=== PATIENT | female | born 1970 | race Caucasian/White ===

== ENCOUNTER 2017-09-29 02:03 | Emergency (ER) | payer OTHER ==
[~2017-09-29] VITALS: Ht 162.6 cm; Wt 96.3 kg
[~2017-09-29 02:03] MED LIST: CELEBREX200 MG PO; CIPROFLOXACIN500 M1 PO; FLUVOXAMINE MA100 MG PO; GEODON80 MG PO; GUANFACINE HCL E3 MG PO; IBUPROFEN800 MG; LAMICTAL200 MG PO; LEXAPRO10 MG PO; NAPROSYN500 MG PO; NOHOMEMEDS; PERCOCET 5/31 TABLET PO; PYRIDIUM100 MG PO; ROBAXIN500 MG PO; SYNTHROID112 MCG PO; TRAMADOL HCL50 MG PO; VYVANSE70 MG PO
[2017-09-29 02:24] LABS: ADD MIUA? YES; BILIRUBIN NEGATIVE; BLOOD LARGE; GLUCOSE (STRIP) NEGATIVE; KETONES NEGATIVE; LEUKOCYTES TRACE; NITRITE NEGATIVE; PROTEIN (STRIP) 100; SPECIFIC GRAVITY 1.004 (1.000-1.030); UROBILINOGEN 0.2 MG/DL (0.2-1.0)
[2017-09-29 02:26] LABS: COLOR RED ((YELLOW))
[2017-09-29 02:30] LABS: BACTERIA RARE /HPF; EPITHELIAL CELLS RARE /HPF; MUCUS NONE SEEN /LPF; RED BLOOD CELLS TNTC /HPF (0-5); UCUL ADDED? YES; WHITE BLOOD CELLS 20-30 /HPF (0-5)
[2017-09-29 02:50] LABS: HEMATOCRIT 35.3 % (36.0-46.0); MCH 30.4 PG (29.0-34.0); MCHC 35.7 G/DL (30.0-36.0); MEAN PLAT.VOLUME 8.6 uM^3 (9.5-12.4); PLATELET COUNT 313 K/uL (156-360); RBC DIS.WIDTH-CV 12.3 % (11.8-14.6); RBC DIS.WIDTH-SD 38.3 % (39-53); RED BLOOD COUNT 4.14 M/uL (3.80-5.20); WHITE BLOOD COUNT 7.2 K/uL (4.1-10.2)
[2017-09-29 02:53] LABS: MCV 85.3 FL (83-99)
[2017-09-29 03:07] LABS: CHLORIDE 105 mEq/L (99-109); POTASSIUM 3.4 mEq/L (3.7-5.4); SODIUM 138 mEq/L (136-147)
[2017-09-29 03:08] LABS: GLUCOSE 109 mg/dL (70-99)
[2017-09-29 03:10] LABS: ANION GAP 10 MEQ/L (2-14)
[2017-09-29 03:12] LABS: GFR ESTIMATE (CALCULATED) > 59 mL/min/
[2017-09-29 03:13] LABS: UREA NITROGEN (BUN) 11 mg/dL (9-23)
[2017-09-29 03:47] LABS: QUANTITATIVE HCG < 4.0 MIU/ML
[2017-09-29] MEDS ORDERED: CIPRO500 MG PO (04:55)
[2017-09-29] MEDS ORDERED: MOTRIN800 MG PO (04:55)
[2017-09-29] MEDS ORDERED: ZOFRAN ODT4 MG PO (04:55)
[2017-09-29] MEDS ORDERED: FLOMAX0.4 MG PO (04:55)
[2017-09-29] MEDS ORDERED: PERCOCET 5/31 TABLET PO (04:55)
[2017-09-29 06:33] VITALS: BP 92/64
== END 2017-09-29 06:55 | disposition home or self-care (01) ==
LOC: EME 02:03
DX: N20.0 Calculus of kidney (principal); R10.9 Unspecified abdominal pain; R91.8 Other nonspecific abnormal finding of lung field; Z87.442 Personal history of urinary calculi; F41.9 Anxiety disorder, unspecified; F32.9 Major depressive disorder, single episode, unspecified; E03.9 Hypothyroidism, unspecified; Z90.710 Acquired absence of both cervix and uterus; Z88.0 Allergy status to penicillin; Z88.8 Allergy status to other drugs, medicaments and biological substances; Z87.891 Personal history of nicotine dependence
CPT/HCPCS: 74176; 80048; 81003; 84702; 85027; 87086; 99281; 99285; J0744; J1885; J2270; J7030